=== PATIENT | male | born 1985 | race Hispanic/Latino ===

== ENCOUNTER 2017-04-16 14:52 | Outpatient (CLI) | payer BC ==
--- NOTE | 2017-04-16 15:14 | RAD ---
FOUR VIEWS OF THE LEFT KNEE: History: Acute pain in the left knee with swelling. FINDINGS: Four views of the left knee shows no evidence of acute fracture or dislocation. There is a small to moderate knee effusion. No degenerative changes are seen. IMPRESSION: Small to moderate knee effusion without acute osseous abnormality. POS: [facility]
== END 2017-04-16 14:53 | disposition home or self-care (01) ==
LOC: MADRAD 14:52
PROVIDERS: ATTEND Nurse Practitioner Family
DX: M25.562 Pain in left knee (principal); M25.462 Effusion, left knee